=== PATIENT | female | born 1990 | race African-American/Black ===

== ENCOUNTER 2021-04-02 12:12 | Emergency (ER) | payer SELFPAY ==
[~2021-04-02] VITALS: Ht 162.6 cm; Wt 47.6 kg
--- NOTE | 2021-04-02 12:22 | NUR ---
MD Hoskins at bedside for assessment
--- NOTE | 2021-04-02 12:31 | NUR ---
Right upper arm suture site due to dog bite noted, white drainage also noted on suture site and gauze used to cover area
[2021-04-02] MEDS ORDERED: KETOROLAC TROMETHAMINE 60 MG INJ IM ONE ×2 (13:00→13:08)
[2021-04-02] MEDS ORDERED: HYDR-4209 PO (14:48)
--- NOTE | 2021-04-02 14:55 | NUR ---
Patient discharged to home in stable condition. Area on right arm marked and patient instructed to come back to ER if redness passes marked area, wound check in two days. Written and verbal after care instructions given. Patient verbalizes understanding of instructions. Stressed follow up or return to ER for worsening s/s. took all belongings, no signs of a distress
[2021-04-02 15:15] VITALS: BP 125/77
== END 2021-04-02 14:55 | disposition home or self-care (01) ==
LOC: ER 12:15
DX: S51.811D Laceration without foreign body of right forearm, subsequent encounter (principal); L03.113 Cellulitis of right upper limb; W54.0XXD Bitten by dog, subsequent encounter; Z91.041 Radiographic dye allergy status; Z91.013 Allergy to seafood
CPT/HCPCS: 73060; 96372; 99283; J1885; A4663

== ENCOUNTER 2021-04-04 20:28 | Emergency (ER) | payer SELFPAY ==
[~2021-04-04] VITALS: Ht 162.6 cm; Wt 47.6 kg
[~2021-04-04 20:28] MED LIST: HYDR-4209 PO
--- NOTE | 2021-04-04 22:43 | NUR ---
MD Saldana in room to do MSE.
--- NOTE | 2021-04-04 22:43 | NUR ---
Patric anthony in [facility] - 04/04/21 at 2244 by ANGELICA MD Shana DANIELS in [facility]A.
[2021-04-04] MEDS ORDERED: SULF1TAB48 PO (22:52)
[2021-04-04] MEDS ORDERED: AMOX-430 PO (22:52)
[2021-04-04] MEDS ORDERED: FLUC150T PO (22:52)
[2021-04-04 22:58] VITALS: BP 104/72
--- NOTE | 2021-04-04 22:58 | NUR ---
Patient discharged to home in stable condition. Written and verbal after care instructions given. Patient verbalizes understanding of instructions. Stressed follow up or return to ER for worsening s/s. Patient ambulates with steady gait, V/S stable, left with paper Rx, and left with all personal belongings.
== END 2021-04-04 22:58 | disposition home or self-care (01) ==
LOC: ER 20:28
DX: S41.111D Laceration without foreign body of right upper arm, subsequent encounter (principal); L08.9 Local infection of the skin and subcutaneous tissue, unspecified; W54.0XXD Bitten by dog, subsequent encounter; Z91.041 Radiographic dye allergy status; Z91.013 Allergy to seafood
CPT/HCPCS: A4663